=== PATIENT | male | born 1980 | race Caucasian/White ===

== ENCOUNTER → 2018-02-23 | Outpatient (CLI) | payer OTHER ==
[~2018-02-23] VITALS: Ht 180.3 cm; Wt 93.8 kg
[2018-02-23 15:13] VITALS: BP 130/85; PULSE 79; Ht 180.3 cm; Wt 93.8 kg
== END | disposition home or self-care (01) ==
LOC: C.NEUR 14:28
PROVIDERS: ATTEND Internal Medicine Pulmonary Disease
DX: G47.33 Obstructive sleep apnea (adult) (pediatric) (principal)